=== PATIENT | female | born 1935 | race Caucasian/White ===

== ENCOUNTER → 2016-12-27 | Outpatient (CLI) | payer MEDICARE, BC | LOC: COL.RAD 08:15 | DX: T17.398A Other foreign object in larynx causing other injury, initial encounter (principal); X58.XXXA Exposure to other specified factors, initial encounter | CPT/HCPCS: G8996-GN; G8997-GN; G8998-GN ==

== ENCOUNTER 2017-01-05 08:45 | Outpatient (RCR) | payer MEDICARE, BC | END 2017-03-21 | disposition home or self-care (01) | LOC: WSST | DX: T17.308A Unspecified foreign body in larynx causing other injury, initial encounter (principal) | CPT/HCPCS: G8996-GN; G8997-GN ==

== ENCOUNTER → 2017-01-25 | Outpatient (CLI) | payer MEDICARE, BC | LOC: MC.RAD 10:55 | DX: Z12.31 Encounter for screening mammogram for malignant neoplasm of breast (principal); D24.2 Benign neoplasm of left breast ==

== ENCOUNTER → 2018-05-15 | Outpatient (CLI) | payer MEDICARE, BC ==
[2018-05-15] VITALS (11 sets, daily range): BP systolic 115–148; BP diastolic 61–84; PULSE 60–73; TEMP 97.5–98
[~2018-05-15] VITALS: Ht 165.1 cm; Wt 73.9 kg
[~2018-05-15] MED LIST: CALCIUM 600MG+D1 TAB PO; CRANBERRY FRUI405 MG PO; DYAZIDE 25 MG-31 CAP PO; MULTI VITAMINS1 TAB PO; NORCO 325 MG-51 TAB PO; PRILOSEC10 MG PO; QVAR INH; SYNTHROID0.1 MG/TAB PO; ZOCOR 20MG20 MG PO; ZYRTEC 10MG10 MG PO
== END ==
LOC: COL.CAR 10:15
DX: S32.010A Wedge compression fracture of first lumbar vertebra, initial encounter for closed fracture (principal); K21.9 Gastro-esophageal reflux disease without esophagitis; I10 Essential (primary) hypertension; E78.5 Hyperlipidemia, unspecified; M85.80 Other specified disorders of bone density and structure, unspecified site; Z90.710 Acquired absence of both cervix and uterus; Z88.1 Allergy status to other antibiotic agents; Z88.0 Allergy status to penicillin; Z88.6 Allergy status to analgesic agent; Z82.49 Family history of ischemic heart disease and other diseases of the circulatory system
CPT/HCPCS: C1713; J2250; J3010; J7120

== ENCOUNTER → 2018-05-22 | Outpatient (CLI) | payer MEDICARE, BC | LOC: MC.RAD 04-13 10:20 | DX: Z12.31 Encounter for screening mammogram for malignant neoplasm of breast (principal) ==

== ENCOUNTER 2018-08-11 11:00 | Outpatient (RCR) | payer MEDICARE, BC | END 2018-08-31 | disposition home or self-care (01) | LOC: MKS.ESL.PT | DX: S39.012D Strain of muscle, fascia and tendon of lower back, subsequent encounter (principal); R26.89 Other abnormalities of gait and mobility; Z91.81 History of falling | CPT/HCPCS: G8978-GP; G8979-GP ==

== ENCOUNTER 2018-09-13 13:00 | Outpatient (RCR) | payer MEDICARE, BC | END 2018-11-30 | disposition home or self-care (01) | LOC: MKS.ESL.PT | DX: S39.012D Strain of muscle, fascia and tendon of lower back, subsequent encounter (principal) ==

== ENCOUNTER 2019-06-27 14:00 | Outpatient (RCR) | payer MEDICARE, BC | END 2019-07-18 10:27 | disposition home or self-care (01) | LOC: MKS.ESL.PT 14:00 | DX: M25.552 Pain in left hip (principal) ==

== ENCOUNTER → 2019-09-14 | Outpatient (CLI) | payer MEDICARE, BC | LOC: MC.RAD 13:22 | DX: Z12.31 Encounter for screening mammogram for malignant neoplasm of breast (principal) ==

== ENCOUNTER → 2019-12-11 | Outpatient (CLI) | payer MEDICARE, BC | LOC: COL.RAD 10:44 | DX: R22.0 Localized swelling, mass and lump, head (principal) ==

== ENCOUNTER → 2020-05-21 | Outpatient (CLI) | payer MEDICARE, BC | LOC: MHCPAIN 10:27 | DX: M47.817 Spondylosis without myelopathy or radiculopathy, lumbosacral region (principal); M54.5 Low back pain; G89.29 Other chronic pain; M53.3 Sacrococcygeal disorders, not elsewhere classified | CPT/HCPCS: G0463 ==

== ENCOUNTER 2020-07-21 13:45 | Outpatient (RCR) | payer MEDICARE, BC | END 2020-08-31 | disposition home or self-care (01) | LOC: MKS.ESL.PT | DX: M53.3 Sacrococcygeal disorders, not elsewhere classified (principal); M47.817 Spondylosis without myelopathy or radiculopathy, lumbosacral region ==

== ENCOUNTER → 2020-09-15 | Outpatient (CLI) | payer MEDICARE, BC | LOC: MC.RAD 13:26 | DX: Z12.31 Encounter for screening mammogram for malignant neoplasm of breast (principal); N63.10 Unspecified lump in the right breast, unspecified quadrant ==

== ENCOUNTER → 2022-03-17 | Outpatient (CLI) | payer MEDICARE, BC | LOC: MC.RAD 14:30 | DX: Z12.31 Encounter for screening mammogram for malignant neoplasm of breast (principal) ==

== ENCOUNTER 2022-06-24 12:56 | Outpatient (CLI) | payer MEDICARE, BC ==
[~2022-06-24] VITALS: Ht 165.1 cm; Wt 79.2 kg
[2022-06-24] MEDS ORDERED: FLOVENT 110MCG7.9 GM IH (13:28)
[2022-06-24] MEDS ORDERED: PRESERVISIONLUT (13:29)
[2022-06-24 13:30] VITALS: BP 127/70; PULSE 83; TEMP 98
== END 2022-06-24 16:03 | disposition home or self-care (01) ==
LOC: EUO 12:56
DX: Z51.81 Encounter for therapeutic drug level monitoring (principal)
CPT/HCPCS: J3489